=== PATIENT | female | born 1955 | race Caucasian/White ===

== ENCOUNTER 2016-08-12 07:56 | Day surgery (SDC) | payer OTHER ==
[~2016-08-12] VITALS: Ht 170.2 cm; Wt 78.5 kg
[~2016-08-12 07:56] MED LIST: 0.9% Sodium Chloride 1,000 ML IV SCH; ACET-2605 PO; CA C1TAB86 PO; CHOL200025 PO; CINN500C14 PO; IMI100 PO; LORA10CA PO; MULT-1018 PO; Sodium Chloride LOK Flush 10 mL Syringe IV PRN; ZINC50TA4 PO; fentaNYL-PF 50 mCg/mL 2 mL Inj IVPUSH PRN
[2016-08-12 08:13] VITALS: BP 148/94; PULSE 67; RESP 17; O2SAT 98
[2016-08-12] MEDS ORDERED: RANI150C4 PO (08:17)
[2016-08-12] MEDS ORDERED: IMI100 PO (08:17)
[2016-08-12 09:21] VITALS: BP 123/76; PULSE 72; RESP 15; O2SAT 95
[2016-08-12 09:31] VITALS: BP 114/73; PULSE 73; RESP 13; O2SAT 95
[2016-08-12 09:42] VITALS: BP 105/60; PULSE 72; RESP 15; O2SAT 98
--- NOTE | 2016-08-12 10:36 | ENDO ---
[address] [address] ENDOSCOPY PROCEDURE PATIENT: JESU MARSHALL : 1955 MR#: [id number] ADMIT: 08/12/2016 JOB ID: [id number] DATE OF PROCEDURE: 08/12/2016 PRIMARY PROVIDER: Cassandra Goss MD PROCEDURE: Colonoscopy with hot snare polypectomy and cold forceps polypectomy. INDICATIONS: This is a 60-year-old female with a family history of colon cancer and colon polyps. EQUIPMENT: [employer]-H180AL. SEDATION: 1. Versed 6 mg. 2. Fentanyl 150 mcg. COMPLICATIONS: None identified. BOWEL PREPARATION: Fair, adequate exam. PROCEDURE IN DETAIL: After the risks and benefits were explained, written and verbal informed consent was obtained. The patient was brought into the endoscopy suite and placed into the left lateral decubitus position. Sedation was achieved using the above-stated medications with the addition of oxygen via nasal cannula. A digital rectal examination was accomplished and mild to moderate internal external nonbleeding, nonthrombosed hemorrhoids noted. The scope was introduced into the rectum and advanced to the cecum as identified by the appendiceal orifice and ileocecal valve. The scope was slowly withdrawn to carefully examine the mucosa for any defects or lesions. Multiple direct views were made through the dentate line for exclusion of pathology. The colon was decompressed. The scope removed from the patient who tolerated the procedure well. FINDINGS: Six polyps were seen and removed today. The largest was perhaps 6-7 mm. All of these were submitted as "colon polyps." Two of these came by way of the hot snare and [address] of cold forceps. ENDOSCOPIC DIAGNOSIS: 1. Multiple colon polyps. 2. Hemorrhoids. RECOMMENDATIONS: 1. Await histopathology. 2. Repeat colonoscopy three years.
--- NOTE | 2016-08-13 11:13 | PATH ---
SURGICAL PATHOLOGY Attending Physician:Paula Garcia CASE STATUS: Signed Out PATIENT NAME: JESU MARSHALL PID: [id number] : 1955 DATE COLLECTED:08/12/2016 15:38 SPECIMEN: Colon, Polyp CLINICAL HISTORY: 1. 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 ICD10 D12.6 GROSS DESCRIPTION: Received in formalin, labeled with the patient' s name and "colon polyps", are multiple fragments of pelayo, soft tissue ranging in size from 0.1 x 0.1 x 0.1 cm to 0.3 x 0.3 x 0.2 cm. The larger fragment is divided, and all fragments are totally submitted in cassette 1A. ([id number]) MICRO DESCRIPTION: See diagnosis. ICD-9 CODES: CPT CODES: 1: 32430 Electronically Signed Out Harry Santos MD [facility] [address], [place] [address] Technical component performed at [facility], [address], [place], [address]
== END 2016-08-12 23:59 | disposition home or self-care (01) ==
LOC: END 07:56
PROVIDERS: ATTEND Internal Medicine Gastroenterology
DX: Z12.11 Encounter for screening for malignant neoplasm of colon (principal); D12.6 Benign neoplasm of colon, unspecified; K64.8 Other hemorrhoids; K64.4 Residual hemorrhoidal skin tags; Z86.010 Personal history of colon polyps; Z80.0 Family history of malignant neoplasm of digestive organs; K21.9 Gastro-esophageal reflux disease without esophagitis; G43.909 Migraine, unspecified, not intractable, without status migrainosus; J30.9 Allergic rhinitis, unspecified
CPT/HCPCS: 45380; 45385; 99153; G0500; J2250; J3010; J7030